=== PATIENT | female | born 1990 | race Caucasian/White ===

== ENCOUNTER → 2018-05-02 | Outpatient (CLI) | payer OTHER ==
[2014-07-31 14:44] VITALS: BP 104/69
[~2018-05-02] MED LIST: CITA20TA6 PO; IOHEXOL 240 MG/ML 50ML VIAL. ONE; IOHEXOL 240 MG/ML 50ML VIAL. PO ONE; IOHEXOL 300 MG/ML 75 ML VIAL. IV ONE; METF500T5 PO
--- NOTE | 2018-05-02 15:59 | RAD ---
Examination: CT of the abdomen pelvis were performed with oral and IV contrast HISTORY: History of diverticulitis, abdominal pain COMPARISON: 07/31/2014 TECHNIQUE: Axial CT images of the abdomen pelvis were performed with oral and IV contrast. Coronal and sagittal reformats are performed Exposure: One or more of the following individualized dose reduction techniques were utilized for this examination: 1. Automated exposure control 2. Adjustment of the mA and/or kV according to patient size 3. Use of iterative reconstruction technique FINDINGS: The visualized bibasilar lungs are clear. No evidence of free air identified in the abdomen. The visualized liver demonstrates mild decreased attenuation likely hepatic steatosis. The gallbladder is mildly distended. The gallbladder wall appears mildly enhanced with questionable minimal surrounding fluid. The visualized spleen, adrenals grossly appears unremarkable. The stomach is mildly distended. The pancreas grossly appears unremarkable. Few fluid distended small bowel loops identified in the lower mid abdomen. Feces and gas noted in the colon. The appendix is normal. Few sigmoid colon diverticulosis. Urinary bladder is mildly distended. The visualized uterus, adnexa grossly appears unremarkable The bilateral kidneys enhance symmetrically mild degenerative changes lumbar spine IMPRESSION: 1. Mild enhancement of the gallbladder wall with minimal surrounding fluid. Cholecystitis is not completely excluded. Recommend ultrasound right upper quadrant abdomen. 2. Few fluid distended small bowel loops in the lower mid abdomen, nonspecific minimal enteritis is a possibility. 3. Sigmoid colon diverticulosis. 4. Hepatic steatosis. Electronically signed by: Kwasi Head MD (05/02/2018 3:55 PM) [id number]
== END | disposition home or self-care (01) ==
LOC: CT 14:39
PROVIDERS: ATTEND Nurse Practitioner Family
DX: K76.0 Fatty (change of) liver, not elsewhere classified (principal); K57.92 Diverticulitis of intestine, part unspecified, without perforation or abscess without bleeding
CPT/HCPCS: 74177; Q9966; Q9967

== ENCOUNTER → 2018-05-10 | Outpatient (CLI) | payer OTHER ==
[2014-07-31 14:44] VITALS: BP 104/69
[~2018-05-10] MED LIST changes: -IOHEXOL 240 MG/ML 50ML VIAL. ONE; -IOHEXOL 240 MG/ML 50ML VIAL. PO ONE; -IOHEXOL 300 MG/ML 75 ML VIAL. IV ONE
--- NOTE | 2018-05-10 17:05 | RAD ---
ABDOMEN COMPLETE: 05/10/2018 4:00 PM Indication: 28 years old Female. Epigastric pain. Comparison: CT abdomen/pelvis May 02, 2018 FINDINGS: Sonographic imaging of the abdomen is performed utilizing grayscale and color Doppler. Liver: Homogenous normal echotexture. Liver measures 14.5 cm in length. No suspicious hepatic lesions. There is hepatopedal flow within the portal venous system. Biliary system: CBD measures 4 mm. There is no intrahepatic or extrahepatic biliary dilatation. Gallbladder: There are gallstones present. No gallbladder wall thickening or pericholecystic fluid. There is an echogenic focus along the nondependent gallbladder wall with comet tail artifact suggestive of adenomyomatosis. Sonographic Anthony sign: Negative Pancreas: Nonvisualized. Spleen: 9.8 cm. Right kidney: 10.0 x 4.3 x 4.8 cm. No hydronephrosis. Normal echotexture without focal mass or renal calculus. Left kidney: 10.3 x 4.8 x 5.2 cm. No hydronephrosis. Normal echotexture without focal mass or renal calculus. Abdominal aorta and IVC: Visualized portions unremarkable. Proximal aorta is normal in caliber. Mid aorta measures 1.4 cm. Distal aorta is obscured. IVC is only partially profiled and visualized portions are patent. Free fluid:None. IMPRESSION: Cholelithiasis without sonographic evidence for acute cholecystitis. Common bile duct is not dilated. No intrahepatic or extrahepatic biliary ductal dilatation. The liver is normal in appearance. Pancreas is not well visualized. Electronically signed by: Anny Calzada MD (05/10/2018 5:01 PM) [facility]
== END | disposition home or self-care (01) ==
LOC: US 15:19
PROVIDERS: ATTEND Nurse Practitioner Family
DX: R94.5 Abnormal results of liver function studies (principal); R10.11 Right upper quadrant pain; R10.32 Left lower quadrant pain; R10.12 Left upper quadrant pain; R80.8 Other proteinuria
CPT/HCPCS: 76700

== ENCOUNTER → 2018-10-11 | Outpatient (CLI) | payer OTHER ==
[2014-07-31 14:44] VITALS: BP 104/69
[~2018-10-11] MED LIST changes: +METF500T16 PO; -METF500T5 PO
--- NOTE | 2018-10-11 14:56 | RAD ---
Indication:Vaginal bleeding TECHNIQUE: Grayscale, color Doppler and spectral waveform images of the pelvis obtained. COMPARISON: None FINDINGS: Single intrauterine line is seen with heart rate measuring 143 bpm. Abdominal circumference measures 10.51 cm corresponding to gestation age of 16 weeks 3 days. Femoral length measures 2.05 cm corresponding to gestation age of 16 weeks 1 day. Cervix measures 5.7 cm in length and is closed. Placenta is anterior in position. Amniotic fluid index measures 10.3 cm. Presentation is breech at the time of scanning. Bilateral feet are seen. Head circumference measures 12.37 cm corresponding to gestation age of 16 weeks 1 day. Biparietal diameter measures 3.38 cm corresponding to gestation age of 16 weeks 3 days. Estimated weight of 151 g. IMPRESSION: Single viable intrauterine with estimated gestation age of 16 weeks 2 days and due date of 03/26/2019. Electronically signed by: Jaya Roberts DO (10/11/2018 2:53 PM) [id number]
== END | disposition home or self-care (01) ==
LOC: US 11:24
PROVIDERS: ATTEND Nurse Practitioner Family
DX: O46.8X2 Other antepartum hemorrhage, second trimester (principal); Z3A.16 16 weeks gestation of pregnancy
CPT/HCPCS: 76805; 76817